=== PATIENT | male | born 1980 ===

== ENCOUNTER → 2018-11-17 | Outpatient (REF) | payer SELFPAY ==
[2018-11-17 13:34] LABS: SEMEN APPEARANCE OPAQUE (OPAQUE); SEMEN VISCOSITY LIQUID (LIQUID); SEMEN VOLUME 1.4 ml (4.0-5.0)
[2018-11-17 13:35] LABS: WBC CONCENTRATION >1 M/ml (<=1 M/ml)
== END ==
LOC: M LAB REF 12:28
PROVIDERS: ATTEND Specialist
DX: Z98.52 Vasectomy status (principal)

== ENCOUNTER → 2018-11-24 | Outpatient (REF) | payer OTHER, SELFPAY ==
[2018-11-24 13:59] LABS: SEMEN APPEARANCE OPAQUE (OPAQUE); SEMEN VISCOSITY LIQUID (LIQUID); SEMEN VOLUME 2.6 ml (4.0-5.0); SEMEN pH 8.5 (7.0-8.0); WBC CONCENTRATION >1 M/ml (<=1 M/ml)
== END ==
LOC: M LAB REF 13:41
PROVIDERS: ATTEND Specialist
DX: Z98.52 Vasectomy status (principal)